=== PATIENT | female | born 1970 | race Caucasian/White ===

== ENCOUNTER → 2017-05-15 | Outpatient (CLI) | payer BC ==
[~2017-05-15] MED LIST: LEVAQUIN 750MG750 M1 PO; PRISTIQ 50 MG T50 MG PO; TESSALON PERLE200 MG PO
== END ==
LOC: MC.RAD 13:32
DX: Z12.31 Encounter for screening mammogram for malignant neoplasm of breast (principal)

== ENCOUNTER → 2018-08-02 | Outpatient (CLI) | payer BC | LOC: MC.RAD 10:49 | DX: R22.2 Localized swelling, mass and lump, trunk (principal) | CPT/HCPCS: G0279 ==

== ENCOUNTER → 2018-12-13 | Outpatient (CLI) | payer BC | LOC: COL.CARD 11-30 13:45 | DX: R00.2 Palpitations (principal) ==

== ENCOUNTER → 2019-10-25 | Outpatient (CLI) | payer BC | LOC: MC.RAD 13:01 | DX: Z12.31 Encounter for screening mammogram for malignant neoplasm of breast (principal) ==

== ENCOUNTER → 2019-10-29 | Outpatient (CLI) | payer BC | LOC: MC.RAD 14:29 | DX: R92.1 Mammographic calcification found on diagnostic imaging of breast (principal) ==

== ENCOUNTER → 2020-10-28 | Outpatient (CLI) | payer BC | LOC: MC.RAD 08:32 | DX: R92.1 Mammographic calcification found on diagnostic imaging of breast (principal) ==

== ENCOUNTER → 2020-11-04 | Outpatient (CLI) | payer BC | LOC: MC.RAD 08:17 | DX: R92.0 Mammographic microcalcification found on diagnostic imaging of breast (principal); Z98.82 Breast implant status | CPT/HCPCS: 30635 ==

== ENCOUNTER 2020-12-10 06:25 | Day surgery (SDC) | payer BC ==
[2020-12-10] VITALS (7 sets, daily range): BP systolic 116–134; BP diastolic 78–96; PULSE 73–83; TEMP 98–98.2
[~2020-12-10] VITALS: Ht 172.7 cm; Wt 75.3 kg
[2020-12-10] MEDS ORDERED: HCTZ 25MG TAB25 MG PO (12:07)
[2020-12-10] MEDS ORDERED: KAPSPARGO SPRIN25 MG PO (12:07)
[2020-12-10] MEDS ORDERED: ULTRAM 50MG TAB50 MG PO (12:51)
--- NOTE | 2020-12-10 13:30 | NUR ---
Pt arrived back to room via cart with [employer]IPE FITTINGLar[employer]. Report received. Pt awake and alert and oriented and appropriate. Pt denies pain or nausea at this time. VSS and WNL - Pt has some episodes of O2 in the low 90s but easily recovers into upper 90s with deep breath. Water brought to patient per request and at bedside. Call light within reach.
--- NOTE | 2020-12-10 13:49 | NUR ---
Pt sleepy and will dip with O2 saturation. Pt requested to have O2 on until she wakes up more. 1 L placed. Pt's incisions are clean dry and intact. Some swelling noted under left arm/armpit area. No redness or exudate. VSS and at baseline for pt.
--- NOTE | 2020-12-10 13:58 | NUR ---
Pt sitting up in bed awake, alert, and oriented. Pt took off O2, because she states that she is now more awake after eating pudding. Pt denies pain but has some discomfort in let underarm area. Ice pack brought per her request. VSS and WNL. Call light within reach and at bedside.
--- NOTE | 2020-12-10 14:15 | NUR ---
Pt sitting comfortably in bed with ice pack. Awake, alert, oriented and states that she's ready to go home. VSS and WNL
--- NOTE | 2020-12-10 14:32 | NUR ---
Pt meets criteria for discharge. Reviewed D/C information and education packet. VSS and at baseline. Reviewed medication information. Pt has no further questions. Successfully up to BR with no issues.
== END 2020-12-10 14:35 | disposition home or self-care (01) ==
LOC: SDCO 06:25
DX: C50.412 Malignant neoplasm of upper-outer quadrant of left female breast (principal); I10 Essential (primary) hypertension; F32.9 Major depressive disorder, single episode, unspecified; F41.9 Anxiety disorder, unspecified; F43.10 Post-traumatic stress disorder, unspecified; Z20.822 Contact with and (suspected) exposure to COVID-19; Z90.710 Acquired absence of both cervix and uterus; Z79.899 Other long term (current) drug therapy; Z88.2 Allergy status to sulfonamides; Z88.5 Allergy status to narcotic agent; Z80.0 Family history of malignant neoplasm of digestive organs; Z82.3 Family history of stroke
CPT/HCPCS: A9541; J0690; J1100; J1885; J2250; J2704; J2795; J3010; J7120

== ENCOUNTER → 2021-11-12 | Outpatient (CLI) | payer BC ==
[~2021-11-12] MED LIST changes: +HCTZ 25MG TAB25 MG PO; +KAPSPARGO SPRIN25 MG PO; +ULTRAM 50MG TAB50 MG PO
== END ==
LOC: MC.RAD 09:05
DX: Z51.0 Encounter for antineoplastic radiation therapy (principal); C50.412 Malignant neoplasm of upper-outer quadrant of left female breast; I10 Essential (primary) hypertension

== ENCOUNTER → 2022-05-13 | Outpatient (CLI) | payer BC | LOC: MC.RAD 13:56 | DX: Z85.3 Personal history of malignant neoplasm of breast (principal); I10 Essential (primary) hypertension; Z90.12 Acquired absence of left breast and nipple ==